=== PATIENT | female | born 1970 | race Hispanic/Latino ===

== ENCOUNTER 2022-05-07 08:11 | Emergency (ER) | payer SELFPAY ==
--- OUTSIDE RECORDS SUMMARY | 2022-05-07 08:15 | XMS REPORT | Continuity of Care Document ---
:1970 Author Organization [facility] t Address [address] [place] [address] Care Team Providers Name Role Phone Guillermina Segura Attending Clinician Unavailable Andi Estevez Attending Clinician Unavailable Physician, No Primary or Family Admitting Clinician [facility] Payers Payer Name Policy Type Policy Number Effective Date Expiration Date S ource Problems This patient has no known problems. Allergies, Adverse Reactions, Alerts Allergy Allergy Status Severity Reaction(s) Onset Inactive Treating Comm ents Source Name Type Date Date Clinician No Known DA Active U [facility] Allergie 08-16 [facility] 00:00: [address] Medications This patient has no known medications. Procedures This patient has no known procedures. Encounters Start End Encounter Admission Attending Care Care Encounter Source Date/Time Date/Time Type Type Clinicians Facility Department ID 2021-09-03 2021-09-03 Outpatient Imelda JEOVANY LABO [id number] [facility] 09:15:00 09:15:00 [facility] 2021-09-03 2021-09-03 Emergency EM DOUGLAS Segura [id number] [facility] 01:50:00 04:42:00 [facility] [id number] [facility] 2021-09-03 2021-09-03 Emergency EM DOUGLAS Segura [id number] [facility] 01:50:00 04:42:00 Guillermina 43 [facility] 2021-08-16 2021-08-16 Emergency EM DOUGLAS Estevez FERS [id number] [facility] 20:56:00 21:45:00 Andi Lao [facility] 2021-08-16 2021-08-16 Emergency DOUGLAS Celis [facility] [id number] [facility] 20:56:00 21:45:00 Andi [id number] [facility] 2020-04-18 2020-04-18 Outpatient [facility] COH PDPFFPY KMW [facility] 00:00:00 00:00:00 [id number] Results Test Description Test Time Test Comments Results Result Comments Source URINALYSIS COMPLETE 2021-09-03 04:21:00 Test Item Value Reference Range Interpretation Comme nts UA COLOR (test code = COLU) YELLOW YELLOW UA APPEARANCE (test code = Cloudy CLEAR A I S THE SAMPLE FROM ER [facility]) OR L&D?Y IF THE ANSWER IS NO,PLEASE DO CUMENT TWO RN SIGNATUR ES HERE- by [id number] UA GLUCOSE DIPSTICK (test NEGATIVE mg/dL NEGATIVE code = DGLUU) UA BILIRUBIN DIPSTICK (test NEGATIVE mg/dL NEGATIVE code = BILU) UA KETONE DIPSTICK (test NEGATIVE mg/dL NEGATIVE code = KETU) UA SPECIFIC GRAVITY (test 1.007 1.001-1.035 code = SGU) UA BLOOD DIPSTICK (test >1.0 (3+) mg/dL NEGATIVE A code = ESTEPHANIA) UA PH DIPSTICK (test code = 6.0 5.0-8.0 JUANA) UA PROTEIN DIPSTICK (test 20 (Trace) mg/dL NEGATIVE A code = PROU) UA UROBILINIOGEN DIPSTICK Normal mg/dL NEGATIVE (test code = URO) UA NITRITE DIPSTICK (test POSITIVE NEGATIVE A code = TONE) UA LEUKOCYTE ESTERASE W 500 Mariela/uL (3+) NEGATIVE A REFLEX (test code = LEUUR) Mariela/uL UA WBC (test code = WBCU) 101-150 per HPF 0-5 A UA RBC (test code = RBCU) 3-5 #/HPF 0-5 UA WBC CLUMPS (test code = >10 /HPF NONE A WBCUCL) UA EPITHELIAL CELLS (test FEW per HPF FEW code = EPIU) UA BACTERIA (test code = MODERATE #/HPF NONE A BACU) UA MUCUS (test code = MUCU) FEW #/LPF FEW Urine Source? Clean Catch
--- NOTE | 2022-05-07 09:34 | RAD REPORT ---
EXAM DESCRIPTION: CT - Stone Protocol - 05/07/2022 9:17 am CLINICAL HISTORY: Abdominal pain. COMPARISON: None. TECHNIQUE: Computed axial tomography of the abdomen pelvis was obtained without oral or IV contrast. Lack of IV and oral contrast limits evaluation of solid organs, appendix, bowel, and vessels. Vicente l reformatted images were obtained and reviewed. All CT scans are performed using dose optimization technique as appropriate and may include automated exposure control or mA/KV adjustment according to patient size. FINDINGS: A renal calculus is not seen. An ureteral calculus is not noted. A bladder calculus is not present. The wall of the left renal pelvis and left ureter appears thickened. Left renal cortical th inning may be secondary to prior infection The liver, spleen, pancreas and adrenals appear grossly normal There is no evidence of diverticulitis. The appendix appears normal No adnexal mass IMPRESSION: Negative for a genitourinary calculus Wall of the left renal pelvis and left ureter appear thickened probably indicating infection
[2022-05-07 10:25] LABS: Urine Blood 2+ (Negative); Urine Glucose Negative (Negative); Urine Protein 2+ (Negative); Urine Specific Gravity 1.015 (1.005-1.030)
[2022-05-07] MEDS ORDERED: KETOROLAC 30 MG/ML INJ ONE (10:39)
[2022-05-07] MEDS ORDERED: NA CHLORIDE 0.9% 1,000 ML ONE (10:39)
[2022-05-07] MEDS ORDERED: ONDANSETRON 4 MG/2 ML VIAL ONE (10:39)
[2022-05-07 10:45] LABS: Absolute Lymphocytes (CBC) 0.7 K/uL (0.7-4.9); Hematocrit 36.5 % (36.0-45.0); MCV 91.5 fL (80-100); MPV 8.8 fL (7.6-11.3); RBC Red Blood Cell Count 3.99 M/uL (3.86-4.86)
[2022-05-07 10:54] LABS: Urine Bacteria 20-50 /HPF (<20); Urine Mucus Slight /HPF (None Seen); Urine WBC Clump Occasional /HPF (None Seen)
[2022-05-07 11:04] LABS: Albumin 3.5 g/dL (3.4-5.0); Bilirubin Total 0.7 mg/dL (0.2-1.0); Potassium 3.8 mmol/L (3.5-5.1); Protein, Total 7.9 g/dL (6.4-8.2)
[2022-05-07] MEDS ORDERED: CEFTRIAXONE 1000 MG/VIAL ONE (11:59)
--- NOTE | 2022-05-07 12:19 | EDPHYS ---
Physician Documentation [facility] Name: Jaimie Webb Age: 51 yrs Sex: Female : 1970 Arrival Date: 05/07/2022 Time: 08:16 Bed 17 Private MD: ED Physician Andrew Pang HPI: 05/07 08:30 This 51 yrs old Female presents to ER via Ambulatory with complaints of kb Abdominal Pain. 08:30 The patient has not recently seen a physician. kb 08:34 The patient complains of pain in the left flank. The pain radiates to the left upper kb quadrant. Onset: The symptoms/episode began/occurred 3 day(s) ago. Modifying factors: The symptoms are alleviated by nothing. the symptoms are aggravated by nothing. Associated signs and symptoms: Pertinent positives: nausea, Pertinent negatives: diarrhea, dizziness, dysuria, fever, urinary frequency, headache, hematuria, pain radiating to the lower extremities, vomiting. Severity of pain: At its worst the pain was moderate in the emergency department the pain is unchanged. The patient has not experienced similar symptoms in the past. Historical: - Allergies: 08:23 No Known Allergies; ss - Home Meds: 08:23 None [Active]; ss - PMHx: 08:23 None; ss - PSHx: 08:23 section; ss - Immunization history:: Client reports receiving the 2nd dose of the Covid vaccine. - Social history:: Smoking status: Patient denies any tobacco usage or history of. ROS: 08:29 Constitutional: Negative for fever, chills, and weight loss. kb 08:29 Back: Positive for flank pain, on the left. 08:29 All other systems are negative. Exam: 08:29 Constitutional: This is a well developed, well nourished patient who is awake, alert, kb and in no acute distress. Head/Face: Normocephalic, atraumatic. ENT: Moist Mucous membranes Cardiovascular: Regular rate and rhythm with a normal S1 and S2. No gallops, murmurs, or rubs. No pulse deficits. Respiratory: Respirations even and unlabored. No increased work of breathing. Talking in full sentences Skin: Warm, dry with normal turgor. Normal color. MS/ Extremity: Pulses equal, no cyanosis. Neurovascular intact. Full, normal range of motion. Neuro: Awake and alert, GCS 15, oriented to person, place, time, and situation. Moves all extremities. Normal gait. Psych: Awake, alert, with orientation to person, place and time. Behavior, mood, and affect are within normal limits. 08:29 Abdomen/GI: Inspection: abdomen appears normal, Bowel sounds: normal, Palpation: soft, in all quadrants, mild abdominal tenderness, in the left upper quadrant. 08:29 Back: CVA tenderness, that is moderate, is noted on the left. Vital Signs: 08:22 BP 124 / 88; Pulse 120; Resp 16; Pulse Ox 98% on R/A; Weight 62.14 kg; Height 5 ft. 1 ss in. (154.94 cm); Pain 8/10; 11:48 BP 98 / 63; Pulse 83; Resp 16; Temp 98.5(O); Pulse Ox 99% ; ko1 08:22 Body Mass Index 25.89 (62.14 kg, 154.94 cm) ss MDM: 08:24 Patient medically screened. kb 08:28 Differential diagnosis: non-specific abd pain, Pyelonephritis, Ureterolithiasis. Data kb reviewed: vital signs, nurses notes. ED course: Patient is a 51-year-old female who presents for left flank pain with nausea that started 3 days ago. Denies urinary symptoms. Moderate left CVA tenderness on exam with mild left upper quadrant tenderness. Will obtain CT stone, serum labs and urinalysis.. 12:14 Differential diagnosis: nephrolithiasis, pyelonephritis, UTI. Consideration of kb Admission/Observation Escalation of care including admission/observation considered. Admission considered for pyelonephritis but patient is feeling better, nontoxic in appearance. Will do outpatient antibiotics and repeat urine if needed.. Counseling: I had a detailed discussion with the patient and/or guardian regarding: the historical points, exam findings, and any diagnostic results supporting the discharge/admit diagnosis, lab results, radiology results, the need for outpatient follow up, a family practitioner, to return to the emergency department if symptoms worsen or persist or if there are any questions or concerns that arise at home. Special discussion: I discussed with the patient/guardian in detail that at this point there is no indication for admission to the hospital. It is understood, however, that if the symptoms persist or worsen the patient needs to return immediately for re-evaluation. ED course: Patient feeling better after treatment. Nontoxic in appearance. Tolerating p.o. intake. Will prescribe antibiotics for pyelonephritis and patient will follow-up with PCP. Return precautions given. Verbal understanding received. Patient in agreement with current care plan. 05/07 08:24 Order name: CBC with Diff 05/07 08:24 Order name: CMP kb 05/07 08:24 Order name: Lipase 05/07 08:24 Order name: Urine Microscopic Only kb 05/07 10:25 Order name: Urine Dipstick-Ancillary; Complete Time: 10:34 EDMS 05/07 10:35 Order name: Lactate w/ 2H reflex if indic. kb 05/07 08:24 Order name: CT Stone Protocol kb 05/07 09:35 Order name: CT; Complete Time: 09:35 EDMS 05/07 10:35 Order name: Blood Culture Adult (2) 05/07 10:46 Order name: CBC with Automated Diff; Complete Time: 10:59 EDMS 05/07 10:57 Order name: Urine Microscopic Only; Complete Time: 10:59 EDMS 05/07 11:04 Order name: Comprehensive Metabolic Panel; Complete Time: 11:06 EDMS 05/07 11:04 Order name: Lipase; Complete Time: 11:06 EDMS 05/07 12:09 Order name: Lactate w/ 2H reflex if indic.; Complete Time: 12:14 EDMS 05/07 08:24 Order name: IV Saline Lock; Complete Time: 10:31 kb 05/07 08:24 Order name: Labs collected and sent; Complete Time: 10:32 kb 05/07 08:24 Order name: Urine Dipstick-Ancillary (obtain specimen); Complete Time: 10:24 kb 05/07 10:35 Order name: Vital Signs: obtain temperature; Complete Time: 11:51 kb Administered Medications: 10:39 Drug: NS 0.9% 1000 ml Route: IV; Rate: 1 bolus; Site: right antecubital; ko1 10:39 Drug: TORadol - (ketorolac) 15 mg Route: IVP; Site: right antecubital; ko1 10:39 Drug: Zofran (Ondansetron) 4 mg Route: IVP; Site: right antecubital; ko1 11:56 Drug: Rocephin (cefTRIAXone) 1 grams Route: IV; Rate: calculated rate; Site: right ko1 antecubital; Disposition: 15:47 Co-signature as Attending Physician, Andrew Pang MD I reviewed the patient's care rn provided by the Advanced Practice Provider and agree with the diagnosis and treatment plan. Disposition Summary: 05/07/22 12:19 Discharge Ordered Location: Home kb Condition: Stable kb Diagnosis - Pyelonephritis acute kb Followup: kb - With: Emergency Department - When: As needed - Reason: Worsening of condition Followup: kb - With: Private Physician - When: 2 - 3 days - Reason: Recheck today's complaints, Continuance of care, Re-evaluation by your physician Discharge Instructions: - Discharge Summary Sheet kb - Pyelonephritis, Adult, [id number] kb Forms: - Medication Reconciliation Form kb - Thank You Letter kb - Antibiotic Education kb - Prescription Opioid Use kb Prescriptions: - cefpodoxime 200 mg Oral Tablet - take 1 tablet by ORAL route every 12 hours with food; 20 tablet; Refills: 0, kb Product Selection Permitted Signatures: Dispatcher [employer] EDMS Jennifer Salinas, BANKING SPECIALIST-C BANKING SPECIALIST-Ckb Andrew Pang MD MD rn Smirch, Shelby, RN RN ss Oliver, Kathy, RN RN ko1
--- NOTE | 2022-05-07 12:19 | ER ---
Nurse's Notes [facility] Name: Jaimie Webb Age: 51 yrs Sex: Female : 1970 Arrival Date: 05/07/2022 Time: 08:16 Bed 17 Private MD: Diagnosis: Pyelonephritis acute Presentation: 05/07 08:22 Chief complaint: Patient states: L flank pain that began 3 days ago. +nausea. ss Coronavirus screen: Client denies travel out of the [place] in the last 14 days. Ebola Screen: Patient denies exposure to infectious person. Patient denies travel to an Ebola-affected area in the 21 days before illness onset. Initial Sepsis Screen: Does the patient meet any 2 criteria? No. Patient's initial sepsis screen is negative. Does the patient have a suspected source of infection? No. Patient's initial sepsis screen is negative. Risk Assessment: Do you want to hurt yourself or someone else? Patient reports no desire to harm self or others. Onset of symptoms was May 04, 2022. 08:22 Method Of Arrival: Ambulatory 08:22 Acuity: STACEY 3 ss Historical: - Allergies: 08:23 No Known Allergies; ss - Home Meds: 08:23 None [Active]; ss - PMHx: 08:23 None; ss - PSHx: 08:23 section; ss - Immunization history:: Client reports receiving the 2nd dose of the Covid vaccine. - Social history:: Smoking status: Patient denies any tobacco usage or history of. Screenin:00 [facility] ED Fall Risk Assessment (Adult) History of falling in the last 3 months, ko1 including since admission No falls in past 3 months (0 pts) Confusion or Disorientation No (0 pts) Intoxicated or Sedated No (0 pts) Impaired Gait No (0 pts) Mobility Assist Device Used No (0 pt) Altered Elimination No (0 pt) Score/Fall Risk Level 0 - 2 = Low Risk Oriented to surroundings, Maintained a safe environment, Educated pt \T\ family on fall prevention, incl call for assistance when getting out of bed, Assessed \T\ reinforced patient's understanding of fall precautions, Provided non-skid footwear, Hourly rounding (assess needs \T\ fall precautionary measures) done, Used ambulatory aids as needed (educated on \T\ assisted with), Used gait belt as appropriate. Abuse screen: Denies threats or abuse. Denies injuries from another. Nutritional screening: No deficits noted. Tuberculosis screening: No symptoms or risk factors identified. Assessment: 10:00 General: Appears in no apparent distress. uncomfortable, Behavior is calm, cooperative, ko1 appropriate for age. Pain: Complains of pain in abdomen and left flank and left upper quadrant. Neuro: No deficits noted. Cardiovascular: No deficits noted. Respiratory: No deficits noted. GI: Bowel sounds present X 4 quads. Abd is soft and non tender X 4 quads. : Reports burning with urination. EENT: No deficits noted. Derm: No deficits noted. Musculoskeletal: No deficits noted. Vital Signs: 08:22 BP 124 / 88; Pulse 120; Resp 16; Pulse Ox 98% on R/A; Weight 62.14 kg; Height 5 ft. 1 ss in. (154.94 cm); Pain 8/10; 11:48 BP 98 / 63; Pulse 83; Resp 16; Temp 98.5(O); Pulse Ox 99% ; ko1 08:22 Body Mass Index 25.89 (62.14 kg, 154.94 cm) ss ED Course: 08:16 Patient arrived in ED. mr 08:19 Jennifer Salinas, CHRISTOPHER [facility]. kb 08:19 Andrew Pang MD is Attending Physician. kb 08:23 Triage completed. ss 08:23 Arm band placed on right wrist. ss 09:57 Isabel Fulton, FARIBA is Primary Nurse. ko1 10:00 Patient has correct armband on for positive identification. Placed in gown. Bed in low ko1 position. Call light in reach. Side rails up X 1. Client placed on continuous cardiac and pulse oximetry monitoring. NIBP monitoring applied. media monitor on. 10:24 Urine Microscopic Only Sent. ko1 10:30 Inserted saline lock: 20 gauge in left antecubital area, using aseptic technique. Blood ko1 collected. 10:31 CBC with Diff Sent. ko1 10:31 CMP Sent. ko1 10:31 Lipase Sent. ko1 11:44 Blood Culture Adult (2) Sent. ko1 11:44 Lactate w/ 2H reflex if indic. Sent. ko1 12:30 No provider procedures requiring assistance completed. IV discontinued, intact, ko1 bleeding controlled, No redness/swelling at site. Pressure dressing applied. Administered Medications: 10:39 Drug: NS 0.9% 1000 ml Route: IV; Rate: 1 bolus; Site: right antecubital; ko1 10:39 Drug: TORadol - (ketorolac) 15 mg Route: IVP; Site: right antecubital; ko1 10:39 Drug: Zofran (Ondansetron) 4 mg Route: IVP; Site: right antecubital; ko1 11:56 Drug: Rocephin (cefTRIAXone) 1 grams Route: IV; Rate: calculated rate; Site: right ko1 antecubital; Medication: 12:30 VIS not applicable for this client. ko1 Outcome: 12:19 Discharge ordered by . ira 12:30 Discharged to home ambulatory. ko1 12:30 Condition: stable 12:30 Discharge instructions given to patient, Instructed on discharge instructions, follow up and referral plans. medication usage, Demonstrated understanding of instructions, follow-up care, medications, Prescriptions given X 1. 12:37 Patient left the ED. ko1 Signatures: Jennifer Salinas, DYNAMOMETER TUNER-C DYNAMOMETER TUNER-Bora Robersona Ria mr Janet Orta, RN RN Isabel García, FARIBA RN ko1
[2022-05-07 13:23] VITALS: BP 98/63; TEMP 98.5; O2SAT 99
== END 2022-05-07 12:37 | disposition home or self-care (01) ==
LOC: ER 08:11
DX: N10 Acute pyelonephritis (principal)
CPT/HCPCS: 36415; 74176; 76377; 80053; 81003; 81015; 83605; 83690; 85025; 87040; 87077; 87086; 87088; 87186; 87205; 96374; 96375; 99284; J2405; J7030